=== PATIENT | male | born 1985 | race Caucasian/White ===

== ENCOUNTER 2016-12-11 13:18 | Emergency (ER) | payer BC ==
[~2016-12-11] VITALS: Ht 177.8 cm; Wt 75.0 kg
[2016-12-11] MEDS ORDERED: MELA1TAB15 PO (13:28)
--- NOTE | 2016-12-11 13:53 | REP ---
Clinical: Dislocation. Technique: AP and Y views of the left shoulder. Findings: Anteroinferior glenohumeral joint dislocation is appreciated. The acromioclavicular joint is intact. Impression: Anteroinferior glenohumeral joint dislocation. Signed by Luca Liu MD 12/11/2016 01:45 P
[2016-12-11] MEDS ORDERED: fentaNYL 100 MCG/2 ML INJECTION (J3010) IV ONE (14:30)
[2016-12-11] MEDS: PROPOFOL 200 MG/20 ML VIAL IV ONE (14:35)
--- NOTE | 2016-12-11 15:00 | REP ---
Clinical: Status post reduction. Technique: Portable AP view of the left shoulder. Findings: The patient is status post apparent satisfactory reduction at the glenohumeral joint. The acromioclavicular joint appears intact. No obvious acute fracture in the frontal projection. Impression: Seemingly satisfactory reduction at the glenohumeral joint. Signed by Luca Liu MD 12/11/2016 02:52 P
[2016-12-11 15:25] VITALS: BP 127/86
== END 2016-12-11 15:37 | disposition home or self-care (01) ==
LOC: M ED 13:18
DX: M24.412 Recurrent dislocation, left shoulder (principal)
CPT/HCPCS: 23650; 73020; 73030; 96374; 96375; 99284; J3010

== ENCOUNTER → 2023-10-05 | Outpatient (CLI) | payer BC ==
[~2023-10-05] MED LIST: MELA1TAB15 PO
[2023-10-05 12:36] LABS: BASO % 0.5 % (0.0-1.0); EOS # 0.3 10^3/uL (0.0-0.5); EOS % 5.1 % (0.0-3.0); HEMATOCRIT 43.2 % (42.0-52.0); HEMOGLOBIN 14.8 g/dl (13.5-17.5); LYMPH # 1.8 10^3/uL (1.5-5.0); LYMPH % 27.9 % (24.0-44.0); MEAN CORPUSCULAR HEMOGLOBIN 30.3 pg (27.0-33.0); MEAN CORPUSCULAR HGB CONC 34.3 g/dl (32.0-36.5); MEAN CORPUSCULAR VOLUME 88.3 fl (80.0-96.0); MONO # 0.4 10^3/uL (0.0-0.8); MONO % 6.7 % (2.0-8.0); NEUTROPHILS # 3.9 10^3/uL (1.5-8.5); NEUTROPHILS % 59.3 % (36.0-66.0); PLATELET COUNT, AUTOMATED 176 10^3/uL (150-450); RED BLOOD COUNT 4.89 10^6/uL (4.30-6.10); WHITE BLOOD COUNT 6.5 10^3/uL (4.0-10.0)
[2023-10-05 13:00] LABS: ALBUMIN 4.2 G/DL (3.2-5.2); ALKALINE PHOSPHATASE 60 U/L (46-116); ALT/SGPT 47 U/L (7.0-40); AST/SGOT 26 U/L (<34); BILIRUBIN,TOTAL 0.5 MG/DL (0.3-1.2); BLOOD UREA NITROGEN 18 MG/DL (9-23); CALCIUM LEVEL 8.9 MG/DL (8.5-10.1); CARBON DIOXIDE LEVEL 26 MMOL/L (20-31); CHLORIDE LEVEL 107 MMOL/L (98-107); CHOLESTEROL LEVEL 196 MG/DL (<200); CREATININE FOR GFR 1.04 MG/DL (0.70-1.30); GLOMERULAR FILTRATION RATE > 60.0 (>60); GLUCOSE, FASTING 89 MG/DL (60-100); LDL CHOLESTEROL 138.2 MG/DL (<100); POTASSIUM SERUM 4.4 MMOL/L (3.5-5.1); SODIUM LEVEL 140 MMOL/L (136-145); TOTAL PROTEIN 7.2 G/DL (5.7-8.2); TRIGLYCERIDES LEVEL 89 MG/DL (<150)
== END ==
LOC: M WUC 10:19
PROVIDERS: ATTEND Registered Nurse
DX: Z00.00 Encounter for general adult medical examination without abnormal findings (principal)

== ENCOUNTER → 2024-03-08 | Outpatient (CLI) | payer BC | LOC: M WUC 08:20 | PROVIDERS: ATTEND Student in an Organized Health Care Education/Training Program | DX: M79.671 Pain in right foot (principal) ==

== ENCOUNTER 2025-03-20 12:12 | Emergency (ER) | payer BC ==
[~2025-03-20] VITALS: Ht 177.8 cm; Wt 89.6 kg
[2025-03-20] MEDS ORDERED: CEPH500T PO (12:22)
[2025-03-20 15:32] VITALS: BP 134/96; TEMP 98.3; O2SAT 97
[2025-03-20] MEDS: MUPIROCIN 2% OINT 22 GM TUBE TOP ONE (15:38)
== END 2025-03-20 15:49 | disposition home or self-care (01) ==
LOC: M ED 12:12
DX: L03.032 Cellulitis of left toe (principal); Z79.2 Long term (current) use of antibiotics